=== PATIENT | male | born 1995 | race Hispanic/Latino ===

== ENCOUNTER 2021-07-31 19:34 | Observation (INO) | payer OTHER ==
[2021-07-31] MEDS ORDERED: Ketorolac Tromethamine 30 MG/ML VIAL ONE (23:08)
[2021-07-31 23:30] LABS: #Basophils 0.1 thou/uL (0.0-0.2); #Eosinphils 0.1 thou/uL (0.0-0.7); #Lymphocytes 2.8 thou/uL (1.20-3.40); #Monocytes 0.8 thou/uL (0.11-0.59); #Neutrophils 7.9 thou/uL (1.40-6.50); %Basophils 0.7 % (0.0-1.0); %Eosinophils 0.7 % (0.0-10.0); %Lymphocytes 24.3 % (21.0-51.0); %Monocytes 6.5 % (0.0-10.0); %Neutrophils 67.9 % (42.0-75.0); Hemoglobin 17.2 g/dL (14.0-18.0); Mean Corpuscular HGB CONC 34.7 g/dL (32.0-36.0); Mean Corpuscular Hemoglobin 32.8 pg (27.0-31.0); Mean Corpuscular Volume 94.7 fL (78.0-98.0); Mean Platelet Volume 9.4 fL (7.4-10.4); Platelet Count 191 thou/uL (130-400); RBC Distribution Width 12.4 % (11.5-14.5); Red Blood Cell (RBC) Count 5.23 mill/uL (4.70-6.10); White Blood Cell (WBC) Count 11.7 thou/uL (4.8-10.8)
[2021-07-31 23:43] LABS: ALT (SGPT) 58 U/L (8-55); AST (SGOT) 35 U/L (5-34); Albumin 4.9 g/dL (3.5-5.0); Alkaline Phosphatase 92 U/L (40-110); Anion Gap 12 mmol/L (10-20); BUN (Urea Nitrogen) 10 mg/dL (8.9-20.6); Bilirubin, Total 0.4 mg/dL (0.2-1.2); Calc. Creatinine Clearance 0 mL/min (70-130); Calcium 9.9 mg/dL (7.8-10.44); Carbon Dioxide 26 mmol/L (22-29); Chloride 109 mmol/L (98-107); Globulin 2.8 g/dL (2.4-3.5); Glucose 85 mg/dL (70-105); Potassium 4.4 mmol/L (3.5-5.1); Protein, Total 7.7 g/dL (6.0-8.3); Sodium 143 mmol/L (136-145)
[2021-08-01] MEDS ORDERED: hydrALAZINE 20 MG/ML VIAL SLOW IVP PRN (00:05)
[2021-08-01] MEDS ORDERED: Dextrose 50% Abboject 50 ML SYRINGE SLOW IVP PRN (00:05)
[2021-08-01] MEDS ORDERED: Dextrose 5% in Water 1,000 ML IV PRN (00:05)
[2021-08-01] MEDS ORDERED: Ondansetron PF 4 MG/2 ML Vial IVP PRN (00:05)
[2021-08-01] MEDS ORDERED: traMADol HCl 50 MG TAB PO PRN (00:09)
[2021-08-01] MEDS ORDERED: Cyclobenzaprine 10 MG TAB PO PRN (00:09)
[2021-08-01] MEDS ORDERED: Morphine 4 MG/ML VIAL SLOW IVP PRN (00:26)
[2021-08-01] MEDS: Sodium Chloride 0.9% 1,000 ML IV SCH ×3 (01:05→16:30)
[2021-08-01 01:42] VITALS: BMI 29.9
[2021-08-01] MEDS: Morphine 4 MG/ML VIAL SLOW IVP PRN ×2 (02:05→21:37)
[2021-08-01] MEDS: Ketorolac Tromethamine 30 MG/ML VIAL IVP SCH ×4 (05:56→23:39)
[2021-08-01] MEDS: traMADol HCl 50 MG TAB PO SCH ×4 (05:57→23:40)
[2021-08-01] MEDS: Acetaminophen 500 MG TAB PO SCH ×4 (05:57→23:40)
[2021-08-01] MEDS: Famotidine 20 MG TAB PO SCH ×2 (09:04→20:25)
[2021-08-01 12:26] LABS: SARS-CoV-2 PCR by NAA Not Detected (NotDetected)
[2021-08-01] MEDS ORDERED: Fentanyl 100 MCG/2 ML VIAL ONE (22:28)
[2021-08-01] MEDS ORDERED: HYDROmorphone 0.5 MG/0.5 ML SYRINGE ONE (22:29)
[2021-08-02] MEDS ORDERED: HYDROmorphone 0.5 MG/0.5 ML SYRINGE ONE (01:09)
[2021-08-02] MEDS ORDERED: Neomycin-Polymyxin 1 ML AMP ONE (01:15)
[2021-08-02] MEDS: Sodium Chloride 0.9% 1,000 ML IV SCH ×2 (01:15→09:45)
[2021-08-02] MEDS ORDERED: Bacitracin Zinc Ointment 30 gm TUBE ONE (01:15)
[2021-08-02] MEDS ORDERED: Bupivacaine PF 0.5% 30 ML VIAL ONE (01:15)
[2021-08-02] MEDS ORDERED: Ketorolac Tromethamine 30 MG/ML VIAL ONE (01:28)
[2021-08-02] MEDS ORDERED: Lidocaine 1% PF 5 ML VIAL ONE (01:28)
[2021-08-02] MEDS ORDERED: ePHEDrine 50 MG/ML VIAL ONE (01:28)
[2021-08-02] MEDS ORDERED: PROPOFOL 200 MG/20 ML VIAL ONE (01:28)
[2021-08-02] MEDS ORDERED: Dexamethasone 20 MG/5 ML VIAL ONE (01:28)
[2021-08-02] MEDS ORDERED: Ondansetron PF 4 MG/2 ML Vial ONE (01:28)
[2021-08-02] MEDS: Ketorolac Tromethamine 30 MG/ML VIAL IVP SCH ×2 (05:35→11:49)
[2021-08-02] MEDS: traMADol HCl 50 MG TAB PO SCH (05:35)
[2021-08-02] MEDS: Acetaminophen 500 MG TAB PO SCH (05:35)
[2021-08-02] MEDS ORDERED: Promethazine HCl 25 MG/ML VIAL IM PRN ×2 (06:24→09:14)
[2021-08-02] MEDS ORDERED: Promethazine HCl 25 MG/ML VIAL IVPB PRN (06:24)
[2021-08-02] MEDS ORDERED: Ondansetron HCl/PF 4 MG/2 ML Vial IVP PRN (06:24)
[2021-08-02] MEDS ORDERED: HYDROmorphone 2 MG/ML VIAL SLOW IVP PRN (06:24)
[2021-08-02] MEDS ORDERED: PACU-Morphine 4MG/ML VIAL SLOW IVP PRN (06:24)
[2021-08-02] MEDS ORDERED: Promethazine HCl 25 MG/ML VIAL ONE (06:38)
[2021-08-02] MEDS ORDERED: Morphine 4 MG/ML VIAL SLOW IVP PRN (08:40)
[2021-08-02] MEDS ORDERED: oxyCODONE/Acetaminophen 5 mg/325 mg Tablet PO PRN (08:41)
[2021-08-02] MEDS ORDERED: CEFAZOLIN 2 GM in Premix Bag 1 BAG IVPB SCH (09:00)
[2021-08-02] MEDS ORDERED: Meperidine HCl/PF 25 MG/ML VIAL IM PRN (09:14)
[2021-08-02] MEDS ORDERED: Acetaminophen/Codeine 30-300mg Tablet PO PRN ×2 (09:34)
[2021-08-02] MEDS: Famotidine 20 MG TAB PO SCH (10:04)
[2021-08-02] MEDS: ceFAZolin Sodium/D5W 2 GM in Premix Bag 1 BAG IVPB SCH ×2 (10:18→14:58)
[2021-08-02] MEDS ORDERED: Acetaminophen 325 MG TAB PO SCH (12:00)
[2021-08-02] MEDS ORDERED: Ibuprofen 200 MG TAB PO SCH (14:00)
[2021-08-02] MEDS ORDERED: Gabapentin 300 MG CAP PO SCH (15:00)
[2021-08-02 16:48] VITALS: BP 143/80; TEMP 98.3
== END 2021-08-02 17:57 | disposition home or self-care (01) ==
LOC: ERS 19:34 → SURG A 23:43
PROVIDERS: ADMIT Specialist; ATTEND Specialist
PROC: 0PSN04Z Reposition Left Carpal with Internal Fixation Device, Open Approach (ICD-10-PCS; principal; 2021-08-02)
PROC: 0MQ60ZZ Repair Left Wrist Bursa and Ligament, Open Approach (ICD-10-PCS; 2021-08-02)
PROC: 0MQ60ZZ Repair Left Wrist Bursa and Ligament, Open Approach (ICD-10-PCS; 2021-08-02)
DX: S62.012A Displaced fracture of distal pole of navicular [scaphoid] bone of left wrist, initial encounter for closed fracture (principal); S63.392A Traumatic rupture of other ligament of left wrist, initial encounter; G89.11 Acute pain due to trauma; Z91.013 Allergy to seafood; Z20.822 Contact with and (suspected) exposure to COVID-19; V00.131A Fall from skateboard, initial encounter; Y93.51 Activity, roller skating (inline) and skateboarding
CPT/HCPCS: 29125; 36415; 76000; 80053; 85025; 86850; 86900; 86901; 93005; 96365; 96366; 96375; 96376; C1713; G0378; J1100; J1170; J1885; J2270; J2405; J2550; J2704; J3010; J3490; J7050; S0020; U0003; U0005

== ENCOUNTER 2021-08-03 00:25 | Emergency (ER) | payer OTHER ==
[2021-08-03] MEDS ORDERED: Morphine 10 MG/ML VIAL ONE (01:27)
== END 2021-08-03 02:29 | disposition home or self-care (01) ==
LOC: ERS 00:25
DX: M79.632 Pain in left forearm (principal); G89.18 Other acute postprocedural pain
CPT/HCPCS: 96372; 99283; J2270

== ENCOUNTER 2021-09-24 08:47 | Outpatient (CLI) | payer BC ==
[2021-09-24 20:19] LABS: SARS-CoV-2 PCR by NAA Not Detected (NotDetected)
== END 2021-09-24 08:48 | disposition home or self-care (01) ==
LOC: LABBT 08:47
PROVIDERS: ATTEND Orthopaedic Surgery Hand Surgery
DX: Z01.812 Encounter for preprocedural laboratory examination (principal); T84.84XA Pain due to internal orthopedic prosthetic devices, implants and grafts, initial encounter; Z20.822 Contact with and (suspected) exposure to COVID-19
CPT/HCPCS: U0003; U0005

== ENCOUNTER 2021-09-27 08:59 | Day surgery (SDC) | payer BC ==
[2021-09-24 13:36] VITALS: BMI 30.1
[2021-09-27] MEDS ORDERED: Neomycin-Polymyxin 1 ML AMP ONE (12:18)
[2021-09-27] MEDS ORDERED: Bupivacaine PF 0.5% 30 ML VIAL ONE (12:18)
[2021-09-27] MEDS ORDERED: Bacitracin Zinc Ointment 30 gm TUBE ONE (12:18)
[2021-09-27] MEDS ORDERED: Fentanyl 250 MCG/5 ML VIAL ONE (12:58)
[2021-09-27] MEDS ORDERED: ceFAZolin (BATCH) 2 GM/100 ML BAG ONE (13:07)
[2021-09-27] MEDS ORDERED: Lidocaine 1% PF 5 ML VIAL ONE (13:16)
[2021-09-27] MEDS ORDERED: Ondansetron PF 4 MG/2 ML Vial ONE (13:16)
[2021-09-27] MEDS ORDERED: Dexamethasone 20 MG/5 ML VIAL ONE (13:16)
[2021-09-27] MEDS ORDERED: Ketorolac Tromethamine 30 MG/ML VIAL ONE (13:16)
[2021-09-27] MEDS ORDERED: PROPOFOL 200 MG/20 ML VIAL ONE (13:16)
== END 2021-09-27 15:35 | disposition home or self-care (01) ==
LOC: SDC 08:59
PROVIDERS: ATTEND Orthopaedic Surgery Hand Surgery
PROC: 0RPP04Z Removal of Internal Fixation Device from Left Wrist Joint, Open Approach (ICD-10-PCS; principal; 2021-09-27)
DX: T84.84XA Pain due to internal orthopedic prosthetic devices, implants and grafts, initial encounter (principal); Z87.81 Personal history of (healed) traumatic fracture; Z91.013 Allergy to seafood
CPT/HCPCS: 76000; J0690; J1100; J1885; J2405; J2704; J3010; S0020

== ENCOUNTER 2022-12-15 11:28 | Outpatient (CLI) | payer BC ==
[2022-12-15 12:37] LABS: Bilirubin Neg (Negative); Blood, Urine 10 (Negative); Clarity Clear (Clear); Glucose, Urine (Dipstick) Normal (Negative); Ketone, Urine Negative (Negative); Leukocyte Negative (Negative); Nitrite Negative (Negative); Protein, Urine (Dipstick) Negative (Neg-Trace); Urobilinogen Normal mg/dL (Less than 2)
[2022-12-15 12:42] LABS: #Basophils 0.1 10x3/uL (0.0-0.2); #Eosinphils 0.1 10x3/uL (0.0-0.5); #Monocytes 0.3 10x3/uL (0.0-1.1); #Neutrophils 3.7 10x3/uL (1.5-8.4); %Basophils 1.2 % (0.0-2.0); %Eosinophils 1.2 % (0.0-6.0); %Lymphocytes 37.7 % (18.0-47.0); %Neutrophils 54.8 % (40.0-75.0); Hemoglobin 16.4 g/dL (13.5-17.5); Mean Corpuscular HGB CONC 35.1 g/dL (32.0-36.0); Mean Corpuscular Hemoglobin 30.6 pg (27.0-33.0); Mean Corpuscular Volume 87.1 fl (81.2-95.1); Platelet Count 208 10x3/uL (150-450); RBC Distribution Width 12.9 % (11.5-14.5); Red Blood Cell (RBC) Count 5.36 10x6/uL (4.32-5.72); White Blood Cell (WBC) Count 6.8 10x3/uL (3.5-10.5)
== END 2022-12-15 11:29 | disposition home or self-care (01) ==
LOC: LABBT 11:28
PROVIDERS: ATTEND Orthopaedic Surgery Hand Surgery
DX: Z01.812 Encounter for preprocedural laboratory examination (principal); M24.532 Contracture, left wrist
CPT/HCPCS: 81003; 85025